=== PATIENT | female | born 1955 | race Caucasian/White ===

== ENCOUNTER 2016-08-29 17:33 | Emergency (ER) | payer MEDICAID ==
[~2016-08-29] VITALS: Ht 162.6 cm; Wt 58.4 kg
[2016-08-29 17:37] VITALS: BP 119/77
== END 2016-08-29 18:54 | disposition home or self-care (01) ==
LOC: ED 18:45
DX: K08.9 Disorder of teeth and supporting structures, unspecified (principal); M46.1 Sacroiliitis, not elsewhere classified; K12.0 Recurrent oral aphthae; I10 Essential (primary) hypertension
CPT/HCPCS: 99283